=== PATIENT | female | born 1980 | race Caucasian/White ===

== ENCOUNTER 2019-07-08 00:33 | Emergency (ER) | payer MEDICAID ==
[~2019-07-08] VITALS: Ht 157.5 cm; Wt 81.6 kg
--- NOTE | 2019-07-08 00:40 | NUR ---
PT TAKEN TO BED 11
[2019-07-08 00:44] VITALS: BP 144/62
--- NOTE | 2019-07-08 00:53 | NUR ---
PT TO ED FOR C/O GENERALIZED WEAKNESS, DIZZINESS, CP, AND SOB WITH SUDDEN ONSET X TODAY. PT APPEARS DIAPHORETIC. PT STATES "I JUST WOKE UP AND DIDN'T FEEL GOOD I WAS SUPER DIZZY AND MY CHEST HURTS AND I FELT LIKE I WAS OUT OF AIR" PT ATTATCHED TO CONTINUOUS RECREATION COUNSELOR. PENDING MD LAY.
[2019-07-08] MEDS ORDERED: KETOROLAC 60 MG/2 ML VIAL IM ONE (01:15)
[2019-07-08 01:48] VITALS: BP 133/62
--- NOTE | 2019-07-08 02:18 | NUR ---
Patient discharged with v/s stable. Written and verbal after care instructions given and explained. Patient alert, oriented and verbalized understanding of instructions. Ambulatory with steady gait. All questions addressed prior to discharge. ID band removed. Patient advised to follow up with PMD. Rx of MOTRIN ZOFRAN given. Patient educated on indication of medication including possible reaction and side effects. Opportunity to ask questions provided and answered.
== END 2019-07-08 02:18 | disposition home or self-care (01) ==
LOC: MED 00:33
DX: R07.89 Other chest pain (principal); R11.2 Nausea with vomiting, unspecified; R06.02 Shortness of breath; R50.9 Fever, unspecified; R42 Dizziness and giddiness
CPT/HCPCS: 81002; 93005; 96372; 99283; J1885

== ENCOUNTER 2022-07-23 19:38 | Emergency (ER) | payer MEDICAID ==
[~2022-07-23] VITALS: Ht 152.4 cm; Wt 90.7 kg
[2022-07-23 19:55] VITALS: BP 127/79
--- NOTE | 2022-07-23 19:58 | NUR ---
TO LOBBY A/W BED AMBULATORY
[2022-07-23 20:00] VITALS: BP 127/79
[2022-07-23] MEDS ORDERED: KETOROLAC 30 MG/ML VIAL IM ONE (20:30)
[2022-07-23] MEDS ORDERED: NAPR-1704 PO (20:34)
--- NOTE | 2022-07-23 20:56 | NUR ---
PT'S LEFT ANKLE WRAPPED WITH 3" JUNIOR WRAP. PT ALSO GIVEN CRUTCHES THAT WERE ADJUSTED TO PT'S SIZE AND HIEGHT. PT SHOWED PROPER DEMONSTRATION ON HOW TO USE THEM. PT HAD NO FURTHER QUESTONS. RN AND PA NOTIFIED.
== END 2022-07-23 20:58 | disposition home or self-care (01) ==
LOC: MED 19:38
DX: S93.402A Sprain of unspecified ligament of left ankle, initial encounter (principal); S70.11XA Contusion of right thigh, initial encounter; Z79.899 Other long term (current) drug therapy; W01.0XXA Fall on same level from slipping, tripping and stumbling without subsequent striking against object, initial encounter; Y93.89 Activity, other specified; Y92.89 Other specified places as the place of occurrence of the external cause; Y99.8 Other external cause status
CPT/HCPCS: 73610; 96372; 99283; J1885